=== PATIENT | male | born 1965 | race Caucasian/White ===

== ENCOUNTER 2023-08-28 09:38 | Outpatient (CLI) | payer BC | END 2023-08-28 09:39 | disposition home or self-care (01) | LOC: CSHULT 09:38 | PROVIDERS: ATTEND Nurse Practitioner Family | DX: R10.11 Right upper quadrant pain (principal); K80.20 Calculus of gallbladder without cholecystitis without obstruction | CPT/HCPCS: 76700 ==

== ENCOUNTER 2024-06-15 09:37 | Outpatient (CLI) | payer BC | END 2024-06-15 09:38 | disposition home or self-care (01) | LOC: CSHCT 09:37 | PROVIDERS: ATTEND Internal Medicine Cardiovascular Disease | DX: I71.20 Thoracic aortic aneurysm, without rupture, unspecified (principal) | CPT/HCPCS: 36415; 71275; 82565 ==